=== PATIENT | female | born 1975 | race Caucasian/White ===

== ENCOUNTER 2017-08-04 18:54 | Emergency (ER) | payer MEDICAID ==
[~2017-08-04] VITALS: Ht 170.2 cm; Wt 95.3 kg
[~2017-08-04 18:54] MED LIST: BENADRYL 50MG C50 MG PO; CEFDINIR 300MG300 MG PO; CITALOPRAM HYDR40 MG PO; LAMOTRIGINE100 M1 PO; TRAMADOL 50MG T1 PAK PO; VITAMIN D50000 I1 PO; ZANTAC 150150 MG PO
--- OUTSIDE RECORDS SUMMARY | 2017-08-04 19:01 | External Medical Summary Rpt | CCD ---
Author Author , ОЛЬГА ROLON Address Unknown Phone [email or web address] Care Team Providers Care Multimedia Designer Name Role Phone FREDO SON, FREDO Unavailable Unavailable [facility] Unavailable Un[facility], [facility] KENNEDY LAYTON, KENNEDY LAYTON Unavailable Unavailable [facility], Unavailable Unavailable [facility] Unavailable Unavailable IM[facility]ING [facility], [facility] Unavailable Unavailable ASSOCIAT, [facility], Unavailable Unavailable PLLC, [facility] Unavailable Unavailable EMERGENCY PHYS, [facility] Purpose Continuity of Care Document - 11-25-2014 through 2016 Problems Code Diagnosis DOS Provider Status N764 ABSCESS OF 09-16-2016 [facility] N951 MENOPAUSAL 09-16-2016 [facility] CLIMACTERIC INC STATES R5382 CHRONIC 09-16-2016 [facility] UNSPECIFIED INC D280 BENIGN 09-08-2016 [facility] INC K098 OTHER CYSTS 09-08-2016 [facility], [facility] R1031 RIGHT LOWER 09-08-2016 [place] [facility] M2550 PAIN IN 05-30-2016 [facility] JOINT INC H5203 HYPERMETROP 05-15-2016 KENNEDY LAYTON IA BILATERAL L506 CONTACT 03-28-2016 [facility] L509 URTICARIA 03-28-2016 [facility]PEC[facility]YSICIANS, PLLC R42 DIZZINESS 03-19-2016 [place] [facility] R51 HEADACHE 03-19-2016 [facility] M170 BILATERAL 01-29-2016 [facility] OSTEOARTHRI GROUP TIS OF KNEE M2241 CHONDROMALA 01-29-2016 [facility] PATELLAE GROUP RIGHT KNEE M2242 CHONDROMALA 01-29-2016 [facility] P[facility]LLAE GROUP LEFT KNEE [id number] OTHER 01-29-2016 [facility] SYNOVITIS & PHYSICIANS GROUP TENOSYNOVIT IS UNS THIGH M7051 OTHER 01-29-2016 [facility] BURSITIS OF PHYSICIANS KNEE RIGHT GROUP KNEE M7052 OTHER 01-29-2016 [facility] BURSITIS OF PHYSICIANS KNEE LEFT GROUP KNEE M1711 UNILATERAL 01-03-2016 [place] [facility] OSTEOARTHRI IMAGING ASS TIS RIGHT KNEE M1712 UNILATERAL 01-03-2016 [place] [facility] OSTEOARTHRI IMAGING ASS TIS LEFT KNEE [id number] PAIN IN 01-03-2016 [place] [facility]ICAL IM[facility]ING ASS [id number] PAIN IN 01-03-2016 [place] [facility]ICAL IM[facility]ING ASS [id number] PAIN IN 01-03-2016 [facility] KNEE INC J069 ACUTE UPPER 12-01-2015 [facility] INFECTION UNSPECIFIED R05 COUGH 12-01-2015 [facility] R0789 OTHER CHEST 12-01-2015 [facility] R509 FEVER 12-01-2015 [facility] 5921 CALCULUS OF 11-25-2014 FREDO SON URETER 81533 ABDOMINAL 11-25-2014 FERDO SON PAIN, UNSPECIFIED SITE Medications Na ND Rx Da Fi Fi Am Da Di Ph RX Ph St me C No te ll ll ou ys ag ar # ys at rm s nt no ma ic us Or Da si cy ia de te s n re d CI 65 10 11 30 30 00 HO Ac TA 16 -1 -0 .0 00 ME ti LO 20 0- 3- 00 06 TO ve KS 05 20 20 09 WN AM 45 17 17 59 0 10 PH HB AR R MA 40 CY MG OF TA CY BL NT ET HI AN A 51 10 11 4. 28 00 HO Ac T 99 -1 -0 00 00 ME ti D2 10 0- 3- 0 06 TO ve 60 20 20 09 WN 1. 40 17 17 59 25 1 11 PH AR MG MA CY (5 0, OF 00 0 CY UN NT IT HI ) AN A LA 69 10 11 12 30 00 HO Ac MO 09 -1 -0 0. 00 ME ti TR 70 0- 3- 00 06 TO ve IG 14 20 20 0 09 WN IN 90 17 17 59 E 7 12 PH 10 AR 0 MA MG CY TA OF BL ET CY NT HI AN A 51 08 09 4. 28 00 HO Ac T 99 -3 -2 00 00 ME ti D2 10 0- 2- 0 06 TO ve 60 20 20 09 WN 1. 40 17 17 33 25 1 84 PH AR MG MA CY (5 0, OF 00 0 CY UN NT IT HI ) AN A LA 69 08 09 12 30 00 HO Ac MO 09 -3 -2 0. 00 ME ti TR 70 0- 2- 00 06 TO ve IG 14 20 20 0 09 WN IN 90 17 17 33 E 7 85 PH 10 AR 0 MA MG CY TA OF BL ET CY NT HI AN A CI 65 08 09 30 30 00 HO Ac TA 16 -3 -2 .0 00 ME ti LO 20 0- 2- 00 06 TO ve KS 05 20 20 09 WN AM 45 17 17 33 0 86 PH HB AR R MA 40 CY MG OF TA CY BL NT ET HI AN A CI 65 07 08 30 30 00 HO Ac TA 16 -2 -1 .0 00 ME ti LO 20 5- 8- 00 06 TO ve KS 05 20 20 08 WN AM 45 17 17 52 0 08 PH HB AR R MA 40 CY MG OF TA CY BL NT ET HI AN A LA 69 07 08 12 30 00 HO Ac MO 09 -2 -1 0. 00 ME ti TR 70 5- 8- 00 06 TO ve IG 14 20 20 0 08 WN IN 90 17 17 52 E 7 07 PH 10 AR 0 MA MG CY TA OF BL ET CY NT HI AN A 51 07 08 4. 28 00 HO Ac T 99 -2 -1 00 00 ME ti D2 10 5- 8- 0 06 TO ve 60 20 20 08 WN 1. 40 17 17 52 25 1 06 PH AR MG MA CY (5 0, OF 00 0 CY UN NT IT HI ) AN A CI 65 06 07 30 30 00 HO Ac TA 16 -2 -2 .0 00 ME ti LO 20 8- 1- 00 06 TO ve KS 05 20 20 08 WN AM 45 17 17 52 0 08 PH HB AR R MA 40 CY MG OF TA CY BL NT ET HI AN A LA 69 06 07 12 30 00 HO Ac MO 09 -2 -2 0. 00 ME ti TR 70 8- 1- 00 06 TO ve IG 14 20 20 0 08 WN IN 90 17 17 52 E 7 07 PH 10 AR 0 MA MG CY TA OF BL ET CY NT HI AN A 51 06 07 4. 28 00 HO Ac T 99 -2 -2 00 00 ME ti D2 10 8- 1- 0 06 TO ve 60 20 20 08 WN 1. 40 17 17 52 25 1 06 PH AR MG MA CY (5 0, OF 00 0 CY UN NT IT HI ) AN A CI 65 05 06 30 30 00 HO Ac TA 16 -2 -1 .0 00 ME ti LO 20 3- 6- 00 06 TO ve KS 05 20 20 08 WN AM 45 17 17 52 0 08 PH HB AR R MA 40 CY MG OF TA CY BL NT ET HI AN A LA 69 05 06 12 30 00 HO Ac MO 09 -2 -1 0. 00 ME ti TR 70 3- 6- 00 06 TO ve IG 14 20 20 0 08 WN IN 90 17 17 52 E 7 07 PH 10 AR 0 MA MG CY TA OF BL ET CY NT HI AN A 51 05 06 4. 28 00 HO Ac T 99 -2 -1 00 00 ME ti D2 10 3- 6- 0 06 TO ve 60 20 20 08 WN 1. 40 17 17 52 25 1 06 PH AR MG MA CY (5 0, OF 00 0 CY UN NT IT HI ) AN A 51 04 05 4. 28 00 HO Ac T 99 -1 -1 00 00 ME ti D2 10 7- 2- 0 06 TO ve 60 20 20 08 WN 1. 40 17 17 52 25 1 06 PH AR MG MA CY (5 0, OF 00 0 CY UN NT IT HI ) AN A LA 69 04 05 12 30 00 HO Ac MO 09 -1 -1 0. 00 ME ti TR 70 7- 2- 00 06 TO ve IG 14 20 20 0 08 WN IN 90 17 17 52 E 7 07 PH 10 AR 0 MA MG CY TA OF BL ET CY NT HI AN A CI 65 04 05 30 30 00 HO Ac TA 16 -1 -1 .0 00 ME ti LO 20 7- 2- 00 06 TO ve KS 05 20 20 08 WN AM 45 17 17 52 0 08 PH HB AR R MA 40 CY MG OF TA CY BL NT ET HI AN A LA 69 03 04 12 30 00 HO Ac MO 09 -1 -0 0. 00 ME ti TR 70 3- 7- 00 06 TO ve IG 14 20 20 0 07 WN IN 90 17 17 73 E 7 72 PH 10 AR 0 MA MG CY TA OF BL ET CY NT HI AN A 51 03 04 4. 28 00 HO Ac T 99 -1 -0 00 00 ME ti D2 10 3- 7- 0 06 TO ve 60 20 20 07 WN 1. 40 17 17 73 25 1 71 PH AR MG MA CY (5 0, OF 00 0 CY UN NT IT HI ) AN A CI 65 03 04 30 30 00 HO Ac TA 16 -1 -0 .0 00 ME ti LO 20 3- 7- 00 06 TO ve KS 05 20 20 07 WN AM 45 17 17 73 0 70 PH HB AR R MA 40 CY MG OF TA CY BL NT ET HI AN A CI 65 01 02 30 30 00 HO Ac TA 16 -2 -2 .0 00 ME ti LO 20 6- 4- 00 06 TO ve KS 05 20 20 07 WN AM 45 17 17 73 0 70 PH HB AR R MA 40 CY MG OF TA CY BL NT ET HI AN A 51 01 02 4. 28 00 HO Ac T 99 -2 -2 00 00 ME ti D2 10 6- 4- 0 06 TO ve 60 20 20 07 WN 1. 40 17 17 73 25 1 71 PH AR MG MA CY (5 0, OF 00 0 CY UN NT IT HI ) AN A LA 69 01 02 12 30 00 HO Ac MO 09 -2 -2 0. 00 ME ti TR 70 6- 4- 00 06 TO ve IG 14 20 20 0 07 WN IN 90 17 17 73 E 7 72 PH 10 AR 0 MA MG CY TA OF BL ET CY NT HI AN A TE 00 12 01 20 3 00 HO Ac RC 59 -1 -1 .0 00 ME ti ON 13 9- 3- 00 06 TO ve AZ 19 20 20 07 WN OL 75 16 17 78 E 2 78 PH 0. AR 8% MA CY CR EA OF M CY NT HI AN A FL 68 12 01 1. 1 00 HO Ac UC 46 -1 -1 00 00 ME ti ON 20 9- 3- 0 06 TO ve AZ 10 20 20 07 WN OL 34 16 17 78 E 0 77 PH 15 AR 0 MA MG CY TA OF BL ET CY NT HI AN A CI 65 12 01 30 30 00 HO Ac TA 16 -1 -0 .0 00 ME ti LO 20 2- 9- 00 06 TO ve KS 05 20 20 07 WN AM 45 16 17 73 0 70 PH HB AR R MA 40 CY MG OF TA CY BL NT ET HI AN A 51 12 01 4. 28 00 HO Ac T 99 -1 -0 00 00 ME ti D2 10 2- 9- 0 06 TO ve 60 20 20 07 WN 1. 40 16 17 73 25 1 71 PH AR MG MA CY (5 0, OF 00 0 CY UN NT IT HI ) AN A LA 69 12 01 12 30 00 HO Ac MO 09 -1 -0 0. 00 ME ti TR 70 2- 9- 00 06 TO ve IG 14 20 20 0 07 WN IN 90 16 17 73 E 7 72 PH 10 AR 0 MA MG CY TA OF BL ET CY NT HI AN A CE 68 12 01 20 10 00 HO Ac FD 00 -1 -0 .0 00 ME ti IN 10 3- 9- 00 06 TO ve IR 15 20 20 07 WN 00 16 17 75 30 6 02 PH 0 AR MG MA CY CA PS OF UL E CY NT HI AN A Encounters Encounter Start End Date Code Location Performer Type Date [facility] POP - 6 6 [facility] POP - 6 6 [facility] POP - 6 6 [facility] POP - 6 6 [facility] POP - 6 6 [facility] POP - 6 6 [facility]
--- OUTSIDE RECORDS SUMMARY | 2017-08-04 19:01 | External Medical Summary Rpt | CCD ---
Author Author , ОЛЬГА ROLON Address Unknown Phone [email or web address] Care Team Providers Care Type Bar And Segment Assembler Name Role Phone FREDO SON, FREDO Unavailable Unavailable [facility] Unavailable [facility] INC, [facility] KENNEDY LAYTON, KENNEDY LAYTON Unavailable Unavailable [facility], Unavailable Unavailable [facility] Unavailable Unavailable [facility], [facility] Unavailable Unavailable ASSOCIAT, [facility], [facility]available Unavailable PLLC, [facility] Unavailable Unavailable EMERGENCY PHYS, [facility] Purpose Continuity of Care Document - 11-25-2014 through 2016 Problems Code Diagnosis DOS Provider Status N764 ABSCESS OF 09-16-2016 [facility] N951 MENOPAUSAL 09-16-2016 [facility]IM[facility] INC STATES R5382 CHRONIC 09-16-2016 [facility] UNSPECIFIED INC D280 BENIGN 09-08-2016 [facility] K098 OTHER CYSTS 09-08-2016 [facility], [facility] R1031 RIGHT LOWER 09-08-2016 [facility] M2550 PAIN IN 05-30-2016 [facility]INT INC H5203 HYPERMETROP 05-15-2016 KENNEDY LAYTON IA BILATERAL L506 CONTACT 03-28-2016 [facility] L509 URTICARIA 03-28-2016 [facility] R42 DIZZINESS 03-19-2016 [facility] R51 HEADACHE 03-19-2016 [facility] M170 BILATERAL 01-29-2016 [facility] OSTEOARTHRI GROUP TIS OF KNEE M2241 CHONDROMALA 01-29-2016 [facility] PATELLAE GROUP RIGHT KNEE M2242 CHONDROMALA 01-29-2016 [facility] GROUP LEFT KNEE [id number] OTHER 01-29-2016 [facility]OV[facility]IS [facility] TENOSYNOVIT IS UNS THIGH M7051 OTHER 01-29-2016 [facility] BURSITIS [facility] PHYSICIANS KNEE RIGHT GROUP KNEE M7052 OTHER 01-29-2016 [facility] BURSITIS OF PHYSICIANS KNEE LEFT GROUP KNEE M1711 UNILATERAL 01-03-2016 [facility] TIS RIGHT KNEE M1712 UNILATERAL 01-03-2016 [facility] TIS LEFT KNEE [id number] PAIN IN 01-03-2016 [facility] M40251 PAIN IN 01-03-2016 [facility] Q22681 PAIN IN 01-03-2016 [facility] KNEE INC J069 ACUTE UPPER 12-01-2015 [facility] INFECTION UNSPECIFIED R05 COUGH 12-01-2015 [facility] R0789 OTHER CHEST 12-01-2015 [facility] R509 FEVER 12-01-2015 [facility]OC[facility] 5921 CALCULUS OF 11-25-2014 FREDO SON URETER 57663 ABDOMINAL 11-25-2014 FREDO SON PAIN, UNSPECIFIED SITE Medications Na ND [...] 20 0- 3- 00 06 TO ve NV 05 20 20 09 WN AM 45 [...] 20 0- 2- 00 06 TO ve NV 05 20 20 09 WN AM 45 17 17 33 0 86 PH HB AR R MA 40 CY MG OF TA CY BL NT ET HI AN A CI 65 07 08 30 30 00 HO Ac TA 16 -2 -1 .0 00 ME ti LO 20 5- 8- 00 06 TO ve NV 05 20 20 08 WN AM 45 [...] 20 8- 1- 00 06 TO ve NV 05 20 20 08 WN AM 45 [...] 20 3- 6- 00 06 TO ve NV 05 20 20 08 WN AM 45 [...] 20 7- 2- 00 06 TO ve NV 05 20 20 08 WN AM 45 [...] 20 3- 7- 00 06 TO ve NV 05 20 20 07 WN AM 45 17 17 73 0 70 PH HB AR R MA 40 CY MG OF TA CY BL NT ET HI AN A CI 65 01 02 30 30 00 HO Ac TA 16 -2 -2 .0 00 ME ti LO 20 6- 4- 00 06 TO ve NV 05 20 20 07 WN AM 45 [...] 20 2- 9- 00 06 TO ve NV 05 20 20 07 WN AM 45 [...] End Date Code Location Performer Type Date [facility] POP - 6 6 [facility] POP - 6 6 [facility] POP - 6 6 [facility] POP - 6 6 [facility] POP - 6 6 [facility] POP - 6 6 [facility]
--- OUTSIDE RECORDS SUMMARY | 2017-08-04 19:03 | External Medical Summary Rpt | CCD ---
Demographics Preferred Language Martiniquais Marital Status Unknown Scientology Affiliation Unknown Race Unknown Ethnic Group Unknown Author Author , ОЛЬГА ROLON Address Unknown Phone [email or web address] Immunization Unable to retrieve immunization data due to connection failure with Immunization Registry. Please try again later.
--- OUTSIDE RECORDS SUMMARY | 2017-08-04 19:03 | External Medical Summary Rpt | CCD ---
Demographics Preferred Language Ugandan Marital Status Unknown Adventist Affiliation Unknown Race Unknown Ethnic Group Unknown Author Author , ОЛЬГА ROLON Address Unknown Phone [email or web address] Immunization Unable to retrieve immunization data due to connection failure with Immunization Registry. Please try again later.
--- OUTSIDE RECORDS SUMMARY | 2017-08-04 19:03 | External Medical Summary Rpt | CCD ---
Author Author , ОЛЬГА ROLON Address Unknown Phone [email or web address] Care Team Providers Care Sap Manager Name Role Phone FREDO SON, FREDO Unavailable Unavailable [facility] Un[facility] KENNEDY LAYTON, KENNEDY LAYTON Unavailable Unavailable [facility], Unavailable Unavailable [facility] Unavailable Unavailable [facility]ING [facility], [facility] Unavailable Unavailable ASSOCIAT, [facility], Unavailable Unavailable PLLC, [facility] Unavailable Unavailable EMERGENCY PHYS, [facility] Purpose Continuity of Care Document - 11-25-2014 through 2016 Problems Code Diagnosis DOS Provider Status N764 ABSCESS OF 09-16-2016 [facility] N951 MENOPAUSAL 09-16-2016 [facility]IM[facility] INC STATES R5382 CHRONIC 09-16-2016 [facility] UNSPECIFIED INC D280 BENIGN 09-08-2016 [facility] INC K098 OTHER CYSTS 09-08-2016 [facility] R1031 RIGHT LOWER 09-08-2016 [place] [facility] M2550 PAIN IN 05-30-2016 [facility] JOINT INC H5203 HYPERMETROP 05-15-2016 KENNEDY LAYTON IA BILATERAL L506 CONTACT 03-28-2016 [facility] L509 URTICARIA 03-28-2016 [facility] R42 DIZZINESS 03-19-2016 [place] [facility] R51 HEADACHE 03-19-2016 [facility] M170 BILATERAL 01-29-2016 [facility] PRIMARY PHYSICIANS OSTEOARTHRI GROUP TIS OF KNEE M2241 CHONDROMALA 01-29-2016 [facility]AW[facility] PHYSICIANS PATELLAE GROUP RIGHT KNEE M2242 CHONDROMALA 01-29-2016 [facility] PATELLAE GROUP LEFT KNEE [id number] OTHER 01-29-2016 [facility] SYNOVITIS & PHYSICIANS GROUP TENOSYNOVIT IS UNS THIGH M7051 OTHER 01-29-2016 [facility] BURSITIS OF PHYSICIANS KNEE RIGHT GROUP KNEE M7052 OTHER 01-29-2016 [facility] BURSITIS OF PHYSICIANS KNEE LEFT GROUP KNEE M1711 UNILATERAL 01-03-2016 [place] [facility] OSTEOARTHRI IMAGING ASS TIS RIGHT KNEE M1712 UNILATERAL 01-03-2016 [place] [facility]RI IMAGING ASS TIS LEFT KNEE [id number] PAIN IN 01-03-2016 [place] [facility] IM[facility] ASS R33000 PAIN IN 01-03-2016 [place] [facility]ICAL IMAGING ASS [id number] PAIN IN 01-03-2016 [facility] KNEE INC J069 ACUTE UPPER 12-01-2015 [facility] INFECTION UNSPECIFIED R05 COUGH 12-01-2015 [facility] R0789 OTHER CHEST 12-01-2015 [facility] R509 FEVER 12-01-2015 [facility] 5921 CALCULUS OF 11-25-2014 FREDO SON URETER 61520 ABDOMINAL 11-25-2014 FREDO SON PAIN, UNSPECIFIED SITE [...] 20 0- 3- 00 06 TO ve IN 05 20 20 09 WN AM 45 [...] 20 0- 2- 00 06 TO ve IN 05 20 20 09 WN AM 45 17 17 33 0 86 PH HB AR R MA 40 CY MG OF TA CY BL NT ET HI AN A CI 65 07 08 30 30 00 HO Ac TA 16 -2 -1 .0 00 ME ti LO 20 5- 8- 00 06 TO ve IN 05 20 20 08 WN AM 45 [...] 20 8- 1- 00 06 TO ve IN 05 20 20 08 WN AM 45 [...] 20 3- 6- 00 06 TO ve IN 05 20 20 08 WN AM 45 [...] 20 7- 2- 00 06 TO ve IN 05 20 20 08 WN AM 45 [...] 20 3- 7- 00 06 TO ve IN 05 20 20 07 WN AM 45 17 17 73 0 70 PH HB AR R MA 40 CY MG OF TA CY BL NT ET HI AN A CI 65 01 02 30 30 00 HO Ac TA 16 -2 -2 .0 00 ME ti LO 20 6- 4- 00 06 TO ve IN 05 20 20 07 WN AM 45 [...] UL E CY NT HI AN A CI 65 12 01 30 30 00 HO Ac TA 16 -1 -0 .0 00 ME ti LO 20 2- 9- 00 06 TO ve IN 05 20 20 07 WN AM 45 [...] BL ET CY NT HI AN A Encounters Encounter Start End Date Code Location Performer Type Date [facility] 6 [facility] 6 6 [facility] 6 [facility]
--- OUTSIDE RECORDS SUMMARY | 2017-08-04 19:03 | External Medical Summary Rpt ---
Author Author ОЛЬГА Mckee, ОЛЬГА Production Organization ОЛЬГА Production Address Unknown Phone Unavailable
--- OUTSIDE RECORDS SUMMARY | 2017-08-04 19:03 | External Medical Summary Rpt | CCD ---
Author Author , ОЛЬГА ROLON Address Unknown Phone [email or web address] Care Team Providers Care Accounting Bookkeeper Name Role Phone FREDO SON, FREDO Unavailable Unavailable [facility] Un[facility], [facility] KENNEDY LAYTON, KENNEDY LAYTON Unavailable Unavailable [facility], Unavailable Unavailable [facility] Unavailable Unavailable [facility]ING [facility], [facility] Unavailable Unavailable ASSOCIAT, [facility], [facility]available Unavailable PLLC, [facility] Unavailable Unavailable EMERGENCY PHYS, [facility] Purpose Continuity of Care Document - 11-25-2014 through 2016 Problems Code Diagnosis DOS Provider Status N764 ABSCESS OF 09-16-2016 [facility] N951 MENOPAUSAL 09-16-2016 [facility]IM[facility] INC STATES R5382 CHRONIC 09-16-2016 [facility] UNSPECIFIED INC D280 BENIGN 09-08-2016 [facility] K098 OTHER CYSTS 09-08-2016 [facility] R1031 RIGHT LOWER 09-08-2016 [facility] M2550 PAIN IN 05-30-2016 [facility] JOINT INC H5203 HYPERMETROP 05-15-2016 KENNEDY LAYTON IA BILATERAL L506 CONTACT 03-28-2016 [facility] L509 URTICARIA 03-28-2016 [facility] R42 DIZZINESS 03-19-2016 [facility] R51 HEADACHE 03-19-2016 [facility] M170 BILATERAL 01-29-2016 [facility] PRIMARY PHYSICIANS OSTEOARTHRI GROUP TIS OF KNEE M2241 CHONDROMALA 01-29-2016 [facility] PHYS[facility]IANS PATELLAE GROUP RIGHT KNEE M2242 CHONDROMALA 01-29-2016 [facility] P[facility]AE GROUP LEFT KNEE [id number] OTHER 01-29-2016 [facility] SYNOVITIS & PHYSICIANS GROUP TENOSYNOVIT IS UNS THIGH M7051 OTHER 01-29-2016 [facility] BURSITIS OF PHYSICIANS KNEE RIGHT GROUP KNEE M7052 OTHER 01-29-2016 [facility] BURSITIS OF PHYSICIANS KNEE LEFT GROUP KNEE M1711 UNILATERAL 01-03-2016 [facility] ASS TIS RIGHT KNEE M1712 UNILATERAL 01-03-2016 [facility] ASS TIS LEFT KNEE S16619 PAIN IN 01-03-2016 [facility] [id number] PAIN IN 01-03-2016 [facility] E33983 PAIN IN 01-03-2016 [facility] KNEE INC J069 ACUTE UPPER 12-01-2015 [facility] INFECTION UNSPECIFIED R05 COUGH 12-01-2015 [facility] R0789 OTHER CHEST 12-01-2015 [facility] R509 FEVER 12-01-2015 [facility] 5921 CALCULUS OF 11-25-2014 FREDO SON URETER 56128 ABDOMINAL 11-25-2014 FREDO SON PAIN, UNSPECIFIED SITE [...] 20 0- 3- 00 06 TO ve IA 05 20 20 09 WN AM 45 [...] 20 0- 2- 00 06 TO ve IA 05 20 20 09 WN AM 45 17 17 33 0 86 PH HB AR R MA 40 CY MG OF TA CY BL NT ET HI AN A CI 65 07 08 30 30 00 HO Ac TA 16 -2 -1 .0 00 ME ti LO 20 5- 8- 00 06 TO ve IA 05 20 20 08 WN AM 45 [...] 20 8- 1- 00 06 TO ve IA 05 20 20 08 WN AM 45 [...] 20 3- 6- 00 06 TO ve IA 05 20 20 08 WN AM 45 [...] 20 7- 2- 00 06 TO ve IA 05 20 20 08 WN AM 45 [...] 20 3- 7- 00 06 TO ve IA 05 20 20 07 WN AM 45 17 17 73 0 70 PH HB AR R MA 40 CY MG OF TA CY BL NT ET HI AN A CI 65 01 02 30 30 00 HO Ac TA 16 -2 -2 .0 00 ME ti LO 20 6- 4- 00 06 TO ve IA 05 20 20 07 WN AM 45 [...] 20 2- 9- 00 06 TO ve IA 05 20 20 07 WN AM 45 [...] End Date Code Location Performer Type Date [facility]
[2017-08-04] MEDS ORDERED: ZITHROMAX Z PA250 MG PO (20:38)
[2017-08-04] MEDS ORDERED: PROMETHAZINE D118 ML PO (20:38)
[2017-08-04] MEDS ORDERED: PREDNISONE 20MG20 MG PO (20:38)
[2017-08-04] MEDS ORDERED: PROVENTIL0.09 MG/A1 IH (20:38)
--- NOTE | 2017-08-04 20:38 | [facility]gent Treatment Center Report ---
History of Present Issue Date/Time Seen by Provider 08/04/171958 Visit Reason Pt arrived:Walked Presenting Problem:PT C/O HEADACHE, BODY ACHE, NAUSEA, CHEST AND HEAD CONGESTION. Location if Accident: Onset of symptoms date/time:/ or onset unknown for:MEDICAL HX UNKNOWN Have you (or family members/close friends) recently traveled outside the [place]? N If Yes, where/when: Have you had exposure to infectious disease within the past month? TB? Other? Specify: Here w/ spouse, same symptoms. Started w/ rhinorrhea and sore throat 4-5 days ago. yassine ear pain as well described as pressure/fullness. Feeling feverish (hot/ chills) intermittently since onset accompanied w/ bodyaches. Last 2-3 days, symptoms worse in chest. Nonprod cough worse w/ exertion, mild SOA at times and unsure about wheezing. + tobacco abuse. No treatment prior to arrival. requesting "please give me a shot tonight. I need to feel better." Source patient Exam Limitations no limitations ALLERGIES Coded Allergies: No Known Allergies (03/28/16) Home Medications Reported Medications Lamotrigine 100 MG PO DAILY #120 Citalopram Hydrobromide (Citalopram HBr) 40 MG PO DAILY #30 ERGOCALCIFEROL (VITAMIN D2) (Vitamin D2) 50,000 IUNITS PO WEEKLY #4 History Medical History General CAD? No Angina: No VA: No Hypertension? No Hyperlipidemia? No CHF? No DVT? No PE? No COPD? No Asthma? No Anemia? No GERD? No Gastric ulcers? No GI Bleed? No Hernia? No Thyroid Problems? No Hypothyroidism? No CVA? No Seizures? No Diabetes? No Renal Insuffiency? No UTI? Yes Stones? Yes GB Disease: No Nephritic Syndrome? No Asplenia? No Hepatitis? No Sickle Cell Disease? No Arthritis? No Migraines? No Cataracts? No Glaucoma? No MRSA? No HIV? No TB? No Anxiety? No Depression? Yes Cancer? No More? Yes Additional hx: BIPOLAR Immunization HX DT/Tetanus 2012 Surgical Hx Previous Surgery?Y HYSTERECTOMY X3 15 LIPSOTRIPSY MULTIPLE COLONOSCOPIES MULTIPLE ENDOSCOPIES Social History Smoking Hx Smoker: Current Every Day Smoker Tobacco: Yes Type Cigarettes Alcohol Alcohol: No Review of Systems All Other Systems Reviewed and Negative Constitutional see HPI, denies malaise, denies weakness Eyes denies drainage ENT see HPI, nose congestion. denies: ear discharge, throat pain. Respiratory see HPI Cardiovascular denies chest pain, denies palpitations Gastrointestinal denies no symptoms reported Musculoskeletal see HPI Skin denies rash Psychiatric/Neurological denies headache Physical Exam Vital Signs Vital Signs Date Time Temp Pulse Resp B/P Pulse O2 O2 Flow FiO2 Ox Delivery Rate 08/04 2000 98.1 77 20 127/82 98 General Appearance normal appearance, no apparent distress Ear, Nose, Throat normal ENT inspection (x/ clear rhinorrhea) Neck non-tender, supple Respiratory Status Yes: trachea midline, chest symmetrical, non tender chest, non productive cough (worse w/ laughing). No: respiratory distress, use of accessory muscles, pain on inspiration, pain on expiration. Lung Sounds anterior: lungs clear. posterior: lungs clear. bilateral: lungs clear. Cardiovascular regular rate/rhythm, no peripheral edema, no murmur Neurologic alert, oriented x 3 Mental status normal mood/affect Skin normal color, warm/dry Lymphatic no adenopathy Medical Decision Making LABS/Meds/Orders Pt receiving controlled substance in ED? No Results/Orders Laboratory Tests 08/04/17 194: Influenza Type A Ag NOT DETECTED, Influenza Type B Ag NOT DETECTED Current Medication Orders Sig/Jairo Start time Last Medication Dose Route Stop Time Status Admin Azithromycin 0 .STK-MED ONE 08/04 2026 DC PO Methylprednisolone 0 .STK-MED ONE 08/04 2026 DC Sodium Succinate .ROUTE Azithromycin 500 MG ONCE ONE 08/04 2015 DC 08/04 PO 08/04 Methylprednisolone 125 MG ONCE ONE 08/04 2015 DC 08/04 Sodium Succinate IM 08/04 Orders Procedure Date/time Status [facility] FLU A,B 08/04 1941 Complete Departure Departure Time of Disposition 2044 Disposition DC Home or Self Care(routine) Clinical Impression Primary Impression: Acute bronchitis Qualifiers: Bronchitis organism: unspecified organism Qualified Code: J20.9 - Acute bronchitis, unspecified Secondary Impressions: Tobacco abuse Condition STABLE Referrals [facility],Sergo Baker (Family) IMMEDIATELY for new or worsening symptoms OR no noticeable improvement over the next 48-72 hours. 911 for difficulty breathing. Patient Instructions DI for Acute Bronchitis, How to Quit Tobacco Products Additional Instructions * STOP SMOKING!!!! * start antibiotic tomorrow since you were given first dose here in clinic. Be sure to complete entire prescription even if feeling better. * Monitor Temp. Feeling feverish is not the same and having a fever. Tylenol every 4 hours as needed no more then 5 times a day or 4000mg in 24 hours and/or ibuprofen every 6 hours as needed no more then 3200mg in 24 hours (as long as your primary care doctor has told you that it is ok to take both) for fever/ aches/pain. ER if fever no less than 101 despite tylenol and ibuprofen * humidifier/vaporizer/hot steamy shower * Inhaler every 4-6 hours as needed like we discussed. If unsure how to use it, ask pharmacist to demonstrate how. Should help open airways and improve cough, wheezing, shortness of breath. * Mucinex during the day for your cough and cough suppressant only at night. Be sure to drink lots of water. Insurance may not cover a prescription of mucinex. Might be cheaper to get 400mg tablets and take 2 tablets morning, midday and evening all with lots of water. * Promethazine DM cough syrup will cause drowsiness. Use it only at night. No driving, operating machinery or caring for small children after taking it. * Start steroid Friday morning since you received a steroid injection late tonight. Helps with inflammation therefore, cough and wheezing. Follow directions on package. Rvwd side effects. Pt reports they have taken them before. Discharge Counseling Counseled pt/family regarding diagnosis, test results, medications/RX, home care, follow up needs Prescriptions Current Visit Scripts ALBUTEROL (Proventil Hfa Inhaler) 1-2 PUFF IH Q4-6H PRN PRN SOA, wheezing #1 CAN Azithromycin (Zithromycin (Z-ARPITA) 250MG Tab) 250 MG PO DAILY #4 TAB first dose in clinic Prednisone (Prednisone 20MG) 20 MG PO BID #10 TAB PROMETHAZINE/DEXTROMETHORPHAN (Promethazine-Dm Syrup) 5-10 ML PO QHSP PRN cough #120 ML at 2038
[2017-08-04 20:47] VITALS: BP 127/82
== END 2017-08-04 20:47 | disposition home or self-care (01) ==
LOC: UTC 18:54
DX: J20.9 Acute bronchitis, unspecified (principal); F17.210 Nicotine dependence, cigarettes, uncomplicated